=== PATIENT | female | born 1945 | race African-American/Black ===

== ENCOUNTER 2025-01-29 08:40 | Emergency (ER) | payer OTHER ==
[~2025-01-29] VITALS: Ht 162.6 cm; Wt 88.0 kg
[2025-01-29 08:43] VITALS: O2SAT 89
[2025-01-29] MEDS ORDERED: DOXYCYCLINE HYCLATE 100 MG/VIAL IV ONE (08:45)
[2025-01-29 08:48] VITALS: RESP 33
[2025-01-29] MEDS: CEFTRIAXONE 1GM/50ML 50 ML IV ONE (09:00)
[2025-01-29] MEDS: NITROGLYCERIN 0.4MG TABLET SL SL ONE (09:12)
[2025-01-29] MEDS: NITROGLYCERIN OINT 1GM/INCH UDPKT TD ONE (09:12)
[2025-01-29 09:21] LABS: HEMATOCRIT. 30.9 % (36.0-48.0); HEMOGLOBIN. 10.2 g/dL (12.0-16.0); MEAN PLATELET VOLUME 9.4 fl (7.4-10.4); PLATELET 267 x1000/uL (130-400); RED BLOOD CELL COUNT 3.48 mill/uL (4.2-5.4); RED CELL DISTRIBUTION WIDTH 16.3 % (11.6-14.6)
[2025-01-29] MEDS: NITROGLYCERIN OINT 1GM/INCH UDPKT TD NR (09:22)
[2025-01-29] MEDS: FUROSEMIDE 40MG/4ML VIAL IV ONE (09:22)
[2025-01-29 09:24] LABS: CREATININE 2.4 mg/dL (0.6-1.0); UREA NITROGEN BLOOD 33 mg/dL (9-23)
[2025-01-29] MEDS: NITROGLYCERIN 0.4MG TABLET SL SL NR (09:24)
[2025-01-29 09:25] LABS: TROPONIN I HIGH SENSITIVITY 22 ng/L (3.0-34)
[2025-01-29 09:26] LABS: ASPARTATE AMINOTRANSFERASE 33 IU/L (<34); BILIRUBIN DIRECT < 0.1 mg/dL (<=3.0); BILIRUBIN TOTAL 0.4 mg/dL (0.1-1.0); PROTEIN TOTAL 7.3 g/dL (6.0-8.3)
[2025-01-29] MEDS: FUROSEMIDE 100MG/10ML VIAL IV NR (09:26)
[2025-01-29] MEDS: DOXYCYCLINE 100MG/100ML 100 ML IV NR (09:30)
[2025-01-29 09:52] LABS: INR 1.0
[2025-01-29] MEDS: SODIUM ZIRCONIUM CYCLOSILICATE 10GM/PACKET PO SCH (10:03)
[2025-01-29] MEDS: HYDRALAZINE 20MG/ML VIAL IV SCH (10:40)
[2025-01-29 10:43] LABS: BG DEOXYHEMOGLOBIN 0.6 % (0.0-5.0)
[2025-01-29 10:59] LABS: BAND% 2.0 % (1.0-6.0); LYMPHOCYTES % MANUAL 1.0 % (20.0-60.0); MONOCYTES % MANUAL 5.0 % (2.0-8.0); NEUTROPHILS % MANUAL 92.0 % (45.0-75.0)
[2025-01-29 11:04] LABS: PLATELET ESTIMATE NORMAL
[2025-01-29 11:13] LABS: CREATININE 2.3 mg/dL (0.6-1.0); UREA NITROGEN BLOOD 38.0 mg/dL (9-23)
[2025-01-29 11:20] LABS: TROPONIN I HIGH SENSITIVITY 39 ng/L (3.0-34)
[2025-01-29] MEDS: DEXAMETHASONE 4MG/ML 1ML VIAL IV ONE (11:36)
[2025-01-29 11:47] LABS: CLARITY URINE CLEAR (CLEAR); COLOR URINE YELLOW (YELLOW); GLUCOSE URINE NEGATIVE (NEGATIVE); KETONES URINE NEGATIVE (NEGATIVE); LEUKOCYTE ESTERASE URINE 2+ (NEGATIVE); NITRITE URINE NEGATIVE (NEGATIVE); OCCULT BLOOD URINE TRACE (NEGATIVE); PH URINE 6.5 (4.5-8.0); PROTEIN URINE 2+ (NEGATIVE); SPECIFIC GRAVITY URINE 1.009 (1.005-1.030); UROBILINOGEN URINE 0.2 E.U./dL (0.2-1.0)
[2025-01-29 12:05] LABS: BACTERIA URINE 2+; RBC URINE 0-2 /hpf (0-2); SQUAMOUS EPITHELIAL CELL URINE RARE /lpf (RARE/1+); WBC URINE 15-25 /hpf (0-2); YEAST URINE NONE SEEN
[2025-01-29 12:09] LABS: INFLUENZA TYPE A Presumptive Negative (Pres. Neg.)
[2025-01-29 12:10] LABS: INFLUENZA TYPE B Presumptive Negative (Pres. Neg.)
[2025-01-29 12:51] LABS: *AMPHETAMINES SCREEN URINE NEGATIVE (NEGATIVE); *BENZODIAZEPINES SCREEN URINE NEGATIVE (NEGATIVE)
[2025-01-29 12:52] LABS: *BARBITURATES SCREEN URINE NEGATIVE (NEGATIVE); *COCAINE SCREEN URINE NEGATIVE (NEGATIVE); CANNABINOID URINE SCREEN NEGATIVE (NEGATIVE); ECSTASY MDMA SCREEN URINE NEGATIVE (NEGATIVE); METHADONE URINE SCREEN NEGATIVE (NEGATIVE); OPIATES URINE SCREEN NEGATIVE (NEGATIVE); PHENCYCLIDINE URINE SCREEN NEGATIVE (NEGATIVE)
[2025-01-29 14:39] VITALS: BP 167/41; PULSE 76; RESP 22; TEMP 36.4; O2SAT 100
== END 2025-01-29 15:05 | disposition short-term general hospital (02) ==
LOC: EDBD 08:40 → ER 08:40 → EDBEDREQTM 13:02 → EDBEDREQSVC 13:02 → EDBEDREQ 13:02 → ER 15:05 → CMPBEDREQ 01-31 10:36
DX: U07.1 COVID-19 (principal); J96.01 Acute respiratory failure with hypoxia; J18.9 Pneumonia, unspecified organism; Z98.890 Other specified postprocedural states; Z79.899 Other long term (current) drug therapy
CPT/HCPCS: 80076; 80305; 80048; 81003; 80320; 83880; 83605; 85025; 85610; 87040; 87086; 87186; 84484; 87804 ×2; 87077; 36415; 84145; 71045; 82375; 82803; 94660; 93005; 96367; 96365; 96375; 96376; 99291; 87426; J0696; J1100; J3490; J1938; J0360; A4615; 94070; 94664; G0480

== ENCOUNTER 2025-02-12 11:47 | Inpatient (IN) | payer OTHER ==
[~2025-02-12] VITALS: Ht 121.9 cm; Wt 99.0 kg
[2025-02-12] VITALS (43 sets, daily range): BP systolic 79–176; BP diastolic 37–140; PULSE 65–120; RESP 9–35; TEMP 36.1–36.418; O2SAT 87–100
[2025-02-12 12:30] LABS: BASOPHILS % 0.2 % (0.0-2.0); EOSINOPHILS % 1.2 % (0.0-5.0); HEMATOCRIT. 29.2 % (36.0-48.0); HEMOGLOBIN. 9.7 g/dL (12.0-16.0); LYMPHOCYTES % 9.2 % (20.0-50.0); MEAN PLATELET VOLUME 8.8 fl (7.4-10.4); MONOCYTES % 5.3 % (2.0-8.0); NEUTROPHILS % 84.1 % (40.0-76.0); PLATELET 264 x1000/uL (130-400); RED BLOOD CELL COUNT 3.29 mill/uL (4.2-5.4); RED CELL DISTRIBUTION WIDTH 16.8 % (11.6-14.6)
[2025-02-12] MEDS: CEFTRIAXONE 1GM/50ML 50 ML IV ONE (12:35)
[2025-02-12] MEDS: SODIUM CHLORIDE 0.9% (SEPSIS BOLUS) IV ONE (12:36)
[2025-02-12 12:44] LABS: INR 1.0
[2025-02-12 12:48] LABS: CREATININE 1.9 mg/dL (0.6-1.0); UREA NITROGEN BLOOD 43.0 mg/dL (9-23)
[2025-02-12 12:50] LABS: TROPONIN I HIGH SENSITIVITY 63 ng/L (3.0-34)
[2025-02-12] MEDS: PROPOFOL 10MG/ML 100ML 100 ML IV SCH (13:13)
[2025-02-12 13:16] LABS: CLARITY URINE CLOUDY (CLEAR); COLOR URINE YELLOW (YELLOW); GLUCOSE URINE TRACE (NEGATIVE); KETONES URINE NEGATIVE (NEGATIVE); LEUKOCYTE ESTERASE URINE 1+ (NEGATIVE); NITRITE URINE POSITIVE (NEGATIVE); OCCULT BLOOD URINE TRACE (NEGATIVE); PH URINE 6.0 (4.5-8.0); PROTEIN URINE 3+ (NEGATIVE); SPECIFIC GRAVITY URINE 1.014 (1.005-1.030); UROBILINOGEN URINE 1.0 E.U./dL (0.2-1.0)
[2025-02-12] MEDS: ROCURONIUM BROMIDE 10MG/ML VIAL 5ML IV ONE (13:18)
[2025-02-12 13:26] LABS: PROTEIN TOTAL 6.5 g/dL (6.0-8.3)
[2025-02-12 13:27] LABS: ASPARTATE AMINOTRANSFERASE 20 IU/L (<34); BILIRUBIN DIRECT < 0.1 mg/dL (<=3.0); BILIRUBIN TOTAL 0.4 mg/dL (0.1-1.0)
[2025-02-12 13:38] LABS: WBC URINE TNTC /hpf (0-2)
[2025-02-12 13:39] LABS: BACTERIA URINE 3+; SQUAMOUS EPITHELIAL CELL URINE RARE /lpf (RARE/1+); YEAST URINE NONE SEEN
[2025-02-12] MEDS ORDERED: IPRATROPIUM/ALBUTEROL 0.5-3(2.5)MG/3ML NEB HHN PRN (14:30)
[2025-02-12] MEDS ORDERED: ACETAMINOPHEN 325MG TABLET PO PRN (14:30)
[2025-02-12] MEDS ORDERED: DOCUSATE SODIUM 100MG CAPSULE PO PRN (14:30)
[2025-02-12] MEDS ORDERED: PROPOFOL 10MG/ML 100ML 100 ML IV SCH (14:30)
[2025-02-12] MEDS ORDERED: ONDANSETRON HCL 4MG/2ML INJ IV PRN (14:30)
[2025-02-12] MEDS ORDERED: CLONIDINE 0.1MG TABLET PO PRN (14:30)
[2025-02-12] MEDS ORDERED: FENTANYL 2500MCG/250ML PMX 250 ML IV PRN (14:30)
[2025-02-12] MEDS ORDERED: DEXTROSE 50% WATER 50ML SYRINGE IV PRN (15:15)
[2025-02-12 15:32] LABS: PHOSPHORUS 4.3 mg/dL (2.5-4.9)
[2025-02-12] MEDS: HYDRALAZINE 20MG/ML VIAL IV NR (15:44)
[2025-02-12] MEDS: POTASSIUM CHLORIDE 40 MEQ in DEXT 5% WATER 230 ML IV ONE ×2 (15:49→20:38)
[2025-02-12] MEDS: FENTANYL 2500MCG/250ML PMX 250 ML IV PRN (15:50)
[2025-02-12] MEDS ORDERED: AZITHROMYCIN 500MG/250ML 250 ML IV SCH (16:00)
[2025-02-12 16:53] LABS: BG BASE EXCESS -5.4 mmol/L (-2.0-3.0); BG CARBOXYHEMOGLOBIN 0.7 % (0.5-1.5); BG DEOXYHEMOGLOBIN 1.1 % (0.0-5.0); BG FRACTION INSPIRED OXYGEN 100; BG HCO3 ACT 21.0 mmol/L (21.0-28.0); BG METHEMOGLOBIN 0.3 % (0.5-1.5); BG OXYGEN SATURATION 98.9 % (94.0-98.0); BG OXYHEMOGLOBIN 97.9 % (94.0-98.0); BG PCO2 45.0 mmHg (32.0-45.0); BG PEEP (cmH2O) 5.0 cmH2O; BG PH 7.286 (7.350-7.450); BG PO2 153.2 mmHg (83.0-108.0); BG SAMPLE SITE RIGHT RADIAL; BG TIDAL VOLUME(mL) 450.0 mL; BG TOTAL HEMOGLOBIN 8.5 g/dL (12.0-16.0); BG VENT MODE VENT - AC; BG VENT RATE 18.0 set
[2025-02-12] MEDS ORDERED: BLOOD SUGAR DIAGNOSTIC STRIP TEST SCH (17:00)
[2025-02-12] MEDS: FUROSEMIDE 40MG/4ML VIAL IVP SCH (17:12)
[2025-02-12] MEDS: LOSARTAN 50 MG TABLET PO SCH (17:17)
[2025-02-12] MEDS: ENOXAPARIN 30MG/0.3ML SYR SUBCUT SCH (17:18)
[2025-02-12] MEDS: BLOOD SUGAR DIAGNOSTIC STRIP TEST SCH (17:26)
[2025-02-12] MEDS: INSULIN LISPRO 100 UNITS/ML SUBCUT SCH (17:27)
[2025-02-12] MEDS ORDERED: CEFEPIME 1GM/50ML 50 ML IV SCH (18:00)
[2025-02-12] MEDS ORDERED: INSULIN LISPRO 100 UNITS/ML SUBCUT SCH (18:20)
[2025-02-12] MEDS: AZITHROMYCIN 500MG/250ML 250 ML IV SCH (18:43)
[2025-02-12] MEDS: CEFEPIME 1GM/50ML 50 ML IV SCH (19:53)
[2025-02-12] MEDS: PROPOFOL 10MG/ML 100ML 100 ML IV PRN (20:38)
[2025-02-12] MEDS: IPRATROPIUM/ALBUTEROL 0.5-3(2.5)MG/3ML NEB HHN SCH (20:42)
[2025-02-12 21:07] LABS: TROPONIN I HIGH SENSITIVITY 2618 ng/L (3.0-34)
[2025-02-12] MEDS ORDERED: HYDRALAZINE 20MG/ML VIAL IV PRN (21:45)
[2025-02-12] MEDS: ENOXAPARIN 80MG/0.8ML SYR SUBCUT SCH (22:10)
[2025-02-13] VITALS (111 sets, daily range): BP systolic 77–172; BP diastolic 36–103; PULSE 65–135; RESP 0–31; TEMP 36.2–38.1; O2SAT 92–100
[2025-02-13] MEDS ORDERED: NOREPINEPHRINE 8MG/250ML PMX 250 ML IV PRN (00:45)
[2025-02-13 02:15] LABS: CREATININE 2.0 mg/dL (0.6-1.0); UREA NITROGEN BLOOD 46.0 mg/dL (9-23)
[2025-02-13] MEDS: POTASSIUM CHLORIDE 40 MEQ in DEXT 5% WATER 230 ML IV NR (03:22)
[2025-02-13 06:24] LABS: HEMATOCRIT. 22.0 % (36.0-48.0); HEMOGLOBIN. 7.3 g/dL (12.0-16.0); MEAN PLATELET VOLUME 8.9 fl (7.4-10.4); PLATELET 187 x1000/uL (130-400); RED BLOOD CELL COUNT 2.49 mill/uL (4.2-5.4); RED CELL DISTRIBUTION WIDTH 17.3 % (11.6-14.6)
[2025-02-13 06:34] LABS: LDL CHOLESTEROL 65.0 mg/dL (5-100); TRIGLYCERIDE 97.0 mg/dL (0-150)
[2025-02-13 06:37] LABS: T4 FREE 1.19 ng/dL (0.89-1.76)
[2025-02-13] MEDS: AMLODIPINE 10MG TABLET PO SCH (08:21)
[2025-02-13] MEDS: PANTOPRAZOLE SODIUM 40 MG/VIAL IV SCH (08:21)
[2025-02-13 08:53] LABS: CREATININE 2.1 mg/dL (0.6-1.0); UREA NITROGEN BLOOD 43.0 mg/dL (9-23)
[2025-02-13 10:08] LABS: BG BASE EXCESS -4.8 mmol/L (-2.0-3.0); BG CARBOXYHEMOGLOBIN 0.8 % (0.5-1.5); BG DEOXYHEMOGLOBIN 2.3 % (0.0-5.0); BG FRACTION INSPIRED OXYGEN 40; BG HCO3 ACT 19.9 mmol/L (21.0-28.0); BG METHEMOGLOBIN 0.3 % (0.5-1.5); BG OXYGEN SATURATION 97.7 % (94.0-98.0); BG OXYHEMOGLOBIN 96.6 % (94.0-98.0); BG PCO2 35.3 mmHg (32.0-45.0); BG PEEP (cmH2O) 5.0 cmH2O; BG PH 7.370 (7.350-7.450); BG PO2 101.8 mmHg (83.0-108.0); BG SAMPLE SITE LEFT RADIAL; BG TIDAL VOLUME(mL) 450.0 mL; BG TOTAL HEMOGLOBIN 8.5 g/dL (12.0-16.0); BG VENT MODE VENT - AC; BG VENT RATE 20.0 set
[2025-02-13 11:24] LABS: BAND% 2.0 % (1.0-6.0); LYMPHOCYTES % MANUAL 4.0 % (20.0-60.0); MONOCYTES % MANUAL 2.0 % (2.0-8.0); NEUTROPHILS % MANUAL 92.0 % (45.0-75.0); PLATELET ESTIMATE NORMAL
[2025-02-13] MEDS: POTASSIUM CHLORIDE 20MEQ/PACKET PO NR (11:40)
[2025-02-13] MEDS: ASPIRIN 81MG EC TABLET PO SCH (12:52)
[2025-02-13 15:30] LABS: TROPONIN I HIGH SENSITIVITY 4450 ng/L (3.0-34)
[2025-02-13] MEDS ORDERED: POTASSIUM CHLORIDE 20MEQ/PACKET PO ONE (16:00)
[2025-02-13] MEDS: ENOXAPARIN 100MG/ML SYR SUBCUT SCH (20:04)
[2025-02-13] MEDS: ACETAMINOPHEN 325MG TABLET PO PRN (20:04)
[2025-02-14] VITALS (93 sets, daily range): BP systolic 92–145; BP diastolic 32–85; PULSE 81–118; RESP 0–29; TEMP 37.3–38.7; O2SAT 94–100
[2025-02-14 06:39] LABS: HEMATOCRIT. 22.6 % (36.0-48.0); HEMOGLOBIN. 7.6 g/dL (12.0-16.0); MEAN PLATELET VOLUME 9.2 fl (7.4-10.4); PLATELET 180 x1000/uL (130-400); RED BLOOD CELL COUNT 2.62 mill/uL (4.2-5.4); RED CELL DISTRIBUTION WIDTH 17.0 % (11.6-14.6)
[2025-02-14 07:01] LABS: CREATININE 2.2 mg/dL (0.6-1.0)
[2025-02-14 07:02] LABS: UREA NITROGEN BLOOD 47.0 mg/dL (9-23)
[2025-02-14 10:26] LABS: BG BASE EXCESS -2.4 mmol/L (-2.0-3.0); BG CARBOXYHEMOGLOBIN 1.1 % (0.5-1.5); BG DEOXYHEMOGLOBIN 1.5 % (0.0-5.0); BG FRACTION INSPIRED OXYGEN 40; BG HCO3 ACT 20.5 mmol/L (21.0-28.0); BG METHEMOGLOBIN 0.3 % (0.5-1.5); BG OXYGEN SATURATION 98.5 % (94.0-98.0); BG OXYHEMOGLOBIN 97.1 % (94.0-98.0); BG PCO2 27.6 mmHg (32.0-45.0); BG PEEP (cmH2O) 5.0 cmH2O; BG PH 7.489 (7.350-7.450); BG PO2 116.3 mmHg (83.0-108.0); BG SAMPLE SITE LEFT RADIAL; BG TIDAL VOLUME(mL) 450.0 mL; BG TOTAL HEMOGLOBIN 7.3 g/dL (12.0-16.0); BG TOTAL RESPIRATORY RATE 20 b/min; BG VENT MODE VENT - AC; BG VENT RATE 20.0 set
[2025-02-14 10:31] LABS: TROPONIN I HIGH SENSITIVITY 5177 ng/L (3.0-34)
[2025-02-14] MEDS: KCL 20MEQ/100ML PREMIX 100 ML IV SCH (10:53)
[2025-02-14 13:37] LABS: BG BASE EXCESS -2.6 mmol/L (-2.0-3.0); BG CARBOXYHEMOGLOBIN 1.8 % (0.5-1.5); BG DEOXYHEMOGLOBIN 4.3 % (0.0-5.0); BG FRACTION INSPIRED OXYGEN 40; BG HCO3 ACT 20.8 mmol/L (21.0-28.0); BG METHEMOGLOBIN 0.1 % (0.5-1.5); BG OXYGEN SATURATION 95.6 % (94.0-98.0); BG OXYHEMOGLOBIN 93.8 % (94.0-98.0); BG PCO2 30.0 mmHg (32.0-45.0); BG PEEP (cmH2O) 5.0 cmH2O; BG PH 7.458 (7.350-7.450); BG PO2 74.9 mmHg (83.0-108.0); BG SAMPLE SITE LEFT RADIAL; BG TOTAL HEMOGLOBIN 7.8 g/dL (12.0-16.0); BG VENT MODE VENT - CPAP
[2025-02-14] MEDS: PIPERACILLIN/TAZO 3.375G/50ML 50 ML IV SCH (14:06)
[2025-02-15 01:07] LABS: LYMPHOCYTES % MANUAL 4.0 % (20.0-60.0); MONOCYTES % MANUAL 8.0 % (2.0-8.0); NEUTROPHILS % MANUAL 88.0 % (45.0-75.0); PLATELET ESTIMATE NORMAL
== END 2025-02-14 22:55 | disposition short-term general hospital (02) | DRG 871 ==
LOC: ER 11:47 → EDBEDREQSVC 13:06 → CVICU 14:09 → EDBEDREQ 14:17 → EDBEDREQTM 14:17 → ENRESERV 14:27
PROVIDERS: ADMIT Internal Medicine; ATTEND Internal Medicine
PROC: 5A09357 Assistance with Respiratory Ventilation, Less than 24 Consecutive Hours, Continuous Positive Airway Pressure (ICD-10-PCS; principal; 2025-02-12)
PROC: 5A1945Z Respiratory Ventilation, 24-96 Consecutive Hours (ICD-10-PCS; 2025-02-12)
PROC: 0BH17EZ Insertion of Endotracheal Airway into Trachea, Via Natural or Artificial Opening (ICD-10-PCS; 2025-02-12)
DX: A41.9 Sepsis, unspecified organism (principal); I21.A1 Myocardial infarction type 2; J96.01 Acute respiratory failure with hypoxia; J18.9 Pneumonia, unspecified organism; I50.23 Acute on chronic systolic (congestive) heart failure; I16.1 Hypertensive emergency; E83.51 Hypocalcemia; D64.9 Anemia, unspecified; E11.22 Type 2 diabetes mellitus with diabetic chronic kidney disease; N39.0 Urinary tract infection, site not specified; B96.89 Other specified bacterial agents as the cause of diseases classified elsewhere; I13.0 Hypertensive heart and chronic kidney disease with heart failure and stage 1 through stage 4 chronic kidney disease, or unspecified chronic kidney disease; I07.1 Rheumatic tricuspid insufficiency; N18.32 Chronic kidney disease, stage 3b; Z16.12 Extended spectrum beta lactamase (ESBL) resistance; I25.10 Atherosclerotic heart disease of native coronary artery without angina pectoris; E87.6 Hypokalemia; Z89.611 Acquired absence of right leg above knee; Z89.612 Acquired absence of left leg above knee; Z89.519 Acquired absence of unspecified leg below knee
CPT/HCPCS: 31500; 31720; 36415; 36600; 71045; 80048; 80061; 80076; 81003; 82040; 82375; 82550; 82805; 82962; 83036; 83605; 83735; 83880; 84100; 84145; 84439; 84443; 84484; 85025; 86850; 86900; 87070; 87077; 87186; 93005; 93306; 94002; 94003; 94070; 94640; 94660; 94664; 96365; 98960; 99285; J0360; J0456; J0692; J0696; J1650; J1815; J1938; J2470; J2543; J2704; J3010; J3480; J3490; J7030; J7060